=== PATIENT | female | born 1965 | race Hispanic/Latino ===

== ENCOUNTER → 2022-06-12 | Outpatient (CLI) | payer OTHER | END | disposition home or self-care (01) | LOC: RAH 10:32 | PROVIDERS: ATTEND Family Medicine | DX: Z12.31 Encounter for screening mammogram for malignant neoplasm of breast (principal) | CPT/HCPCS: 77067 ==

== ENCOUNTER → 2024-11-17 | Outpatient (CLI) | payer OTHER ==
[~2024-11-17] MED LIST: AEC81 PO; ATOR20TA65 PO; BACL10TA PO; CEFD300C3 PO; CETI10TA57 PO; CHOL100046 PO; CITA-108 PO; GABA-529 PO; LATA2.5D7 OP; METF-444 PO; PIOG15TA66 PO
== END | disposition home or self-care (01) ==
LOC: RAH 12:54
PROVIDERS: ATTEND Physician Assistant
DX: Z12.31 Encounter for screening mammogram for malignant neoplasm of breast (principal)
CPT/HCPCS: 77067